=== PATIENT | male | born 1990 | race Two or more races ===

== ENCOUNTER 2024-08-29 04:06 | Emergency (ER) | payer OTHER ==
[~2024-08-29] VITALS: Ht 170.2 cm; Wt 80.0 kg
[2024-08-29 04:13] VITALS: BP 136/84; PULSE 78; RESP 14; TEMP 97.7; O2SAT 98
[2024-08-29] MEDS: mag hydrox/Alum hydrox/simeth 30ml oral suspension PO ONE (04:29)
[2024-08-29] MEDS: LIDOcaine 2% Viscous 15ml cup MM ONE (04:29)
== END 2024-08-29 04:33 | disposition home or self-care (01) ==
LOC: ER 04:08
DX: K14.6 Glossodynia (principal); K13.79 Other lesions of oral mucosa; R11.2 Nausea with vomiting, unspecified; R10.84 Generalized abdominal pain; Z98.890 Other specified postprocedural states
CPT/HCPCS: 99283